=== PATIENT | male | born 1980 | race African-American/Black ===

== ENCOUNTER 2020-07-19 00:19 | Emergency (ER) | payer SELFPAY ==
[~2020-07-19] VITALS: Ht 185.4 cm; Wt 104.5 kg
[2020-07-19] MEDS ORDERED: fentaNYL PF VIAL 100 MCG/2 ML VIAL ONE (01:06)
--- NOTE | 2020-07-19 01:16 | EKG ---
[facility] [address] [place] [address] Test Date: 2020-07-19 Test Time: 00:34:01 Pat Name: BUSTER FERNANDEZ Department: Room: Gender: M [employer] Store General Manager: : 1980 Requested By: MAURICIO MATA Order Number: [id number] Reading MD: Measurements Intervals [place] Rate: 114 P: 33 GA: 170 QRS: -3 QRSD: 90 T: 24 QT: 322 QTc: 447 Interpretive Statements SINUS TACHYCARDIA LEFTWARD AXIS NO SPECIFIC ECG ABNORMALITIES RI6.02 Compared to ECG 07/19/2020 00:30:35 No significant changes
--- NOTE | 2020-07-19 01:17 | PHYS DOC ---
Past Medical History Past Medical History: No Pertinent History Past Surgical History: No Surgical History Smoking Status: Current Every Day Smoker Alcohol Use: Occasionally Drug Use: Marijuana General Adult EDM: Chief Complaint: ANXIETY/PANIC ATTACK HPI: HPI: Patient is a 39 year old male who presented to ER due to feeling anxiety and heart palpitation for the last 2 days. Patient admitted of smoking marijuana. Patient denies any chest pain, no abdominal pain, no nausea vomiting. Patient denies suicidal ideation. Patient denied using methamphetamine or cocaine. Patient denies history hypertension. He denies history of diabetes or history of coronary ARTERY disease. Review of Systems: Review of Systems: Constitutional: Denies fever or chills. [] Eyes: Denies change in visual acuity. [] HENT: Denies nasal congestion or sore throat. [] Respiratory: Denies cough or shortness of breath. [] Cardiovascular: Denies chest pain or edema. Positive for heart palpitation GI: Denies abdominal pain, nausea, vomiting, bloody stools or diarrhea. [] : Denies dysuria. [] Musculoskeletal: Denies back pain or joint pain. [] Integument: Denies rash. [] Neurologic: Denies headache, focal weakness or sensory changes. [] Endocrine: Denies polyuria or polydipsia. [] Lymphatic: Denies swollen glands. [] Psychiatric: Denies depression,positive for anxiety. [] Heart Score: C/O Chest Pain: Yes HEART Score for Chest Pain: HEART Score for Chest Pain Response (Comments) Value History Moderately Suspicious 1 ECG Nonspecific Repolarizatio 1 Age < 45 0 Risk Factors 1 or 2 Risk Factors 1 Troponin < Normal Limit 0 Total 3 Risk Factors: Risk Factors: DM, Current or recent (<one month) smoker, HTN, HLP, family history of CAD, obesity. Risk Scores: Score 0 - 3: 2.5% MACE over next 6 weeks - Discharge Home Score 4 - 6: 20.3% MACE over next 6 weeks - Admit for Clinical Observation Score 7 - 10: 72.7% MACE over next 6 weeks - Early Invasive Strategies Current Medications: Current Medications Medications (Trade) Dose Ordered Sig/Gail Start Time Stop Time Status Last Admin Dose Admin Fentanyl Citrate (Fentanyl 2ml Vial) 100 mcg STK-MED ONCE 07/19/20 01:06 07/19/20 01:06 DC Allergies: Allergies: Allergies Coded Allergies Type Severity Reaction Last Updated Verified No Known Drug Allergies 07/19/20 No Physical Exam: PE: Constitutional: Well developed, well nourished, no acute distress, non-toxic appearance. [] HENT: Normocephalic, atraumatic, bilateral external ears normal, oropharynx moist, no oral exudates, nose normal. [] Eyes: PERRLA, EOMI, conjunctiva normal, no discharge. [] Neck: Normal range of motion, no tenderness, supple, no stridor. [] Cardiovascular: SINUS TACHYCARDIA, regular rhythm, no murmur [] Lungs & Thorax: Bilateral breath sounds clear to auscultation [] Abdomen: Bowel sounds normal, soft, no tenderness, no masses, no pulsatile masses. [] Skin: Warm, dry, no erythema, no rash. [] Back: No tenderness, no CVA tenderness. [] Extremities: No tenderness, no cyanosis, no clubbing, ROM intact, no edema. [] Neurologic: Alert and oriented X 3, normal motor function, normal sensory function, no focal deficits noted. [] Psychologic: Affect normal, judgement normal, mood normal. Appeared to be anxious Current Patient Data: Labs: Laboratory Tests Test 07/19/20 00:46 07/19/20 01:30 07/19/20 05:31 Urine Collection Type Unknown Urine Color Yellow Urine Clarity Clear Urine pH 6.0 Urine Specific [place] <=1.005 Urine Protein Negative mg/dL Urine Glucose (UA) Negative mg/dL Urine Ketones (Stick) Negative mg/dL Urine Blood Negative Urine Nitrite Negative Urine Bilirubin Negative Urine Urobilinogen Dipstick 0.2 mg/dL Urine Leukocyte Esterase Negative Urine RBC 0 /HPF Urine WBC 0 /HPF Urine Squamous Epithelial Cells Occ /LPF Urine Bacteria 0 /HPF Urine Opiates Screen Neg Urine Methadone Screen Neg Urine Barbiturates Neg Urine Phencyclidine Screen Neg Urine Amphetamine/Methamphetamine Neg Urine Benzodiazepines Screen Neg Urine Cocaine Screen Neg Urine Cannabinoids Screen Pos Urine Ethyl Alcohol Neg White Blood Count 5.7 x10^3/uL Red Blood Count 4.90 x10^6/uL Hemoglobin 15.5 g/dL Hematocrit 44.9 % Mean Corpuscular Volume 92 fL Mean Corpuscular Hemoglobin 32 pg Mean Corpuscular Hemoglobin Concent 34 g/dL Red Cell Distribution Width 14.9 % Platelet Count 199 x10^3/uL Neutrophils (%) (Auto) 75 % Lymphocytes (%) (Auto) 14 % Monocytes (%) (Auto) 10 % Eosinophils (%) (Auto) 0 % Basophils (%) (Auto) 1 % Neutrophils # (Auto) 4.3 x10^3/uL Lymphocytes # (Auto) 0.8 x10^3/uL Monocytes # (Auto) 0.6 x10^3/uL Eosinophils # (Auto) 0.0 x10^3/uL Basophils # (Auto) 0.0 x10^3/uL Sodium Level 138 mmol/L Potassium Level 3.6 mmol/L Chloride Level 96 mmol/L Carbon Dioxide Level 26 mmol/L Anion Gap 16 Blood Urea Nitrogen 3 mg/dL Creatinine 0.8 mg/dL Estimated GFR (Cockcroft-Gault) 130.2 BUN/Creatinine Ratio 4 Glucose Level 140 mg/dL Calcium Level 9.4 mg/dL Magnesium Level 2.2 mg/dL Total Bilirubin 1.0 mg/dL Aspartate Amino Transf (AST/SGOT) 254 U/L Alanine Aminotransferase (ALT/SGPT) 277 U/L Alkaline Phosphatase 85 U/L Troponin I Quantitative < 0.017 ng/mL < 0.017 ng/mL XD-Vul-B-Type Natriuretic Peptide 26 pg/mL Total Protein 8.5 g/dL Albumin 5.1 g/dL Albumin/Globulin Ratio 1.5 Lipase 217 U/L Thyroid Stimulating Hormone (TSH) 1.675 uIU/mL Current Medications Medications (Trade) Dose Ordered Sig/Gail Route PRN Reason Start Time Stop Time Status Last Admin Dose Admin Fentanyl Citrate (Fentanyl 2ml Vial) 100 mcg STK-MED ONCE .ROUTE 07/19/20 01:06 07/19/20 01:06 DC Lorazepam (Ativan Inj) 1 mg 1X ONCE IVP 07/19/20 01:15 07/19/20 01:16 DC 07/19/20 01:37 Metoprolol Tartrate (Lopressor Vial) 5 mg 1X ONCE IVP 07/19/20 04:00 07/19/20 04:01 DC 07/19/20 04:16 EKG: EKG: EKG was done at 0034, HEART RATE OF 114 BPM, NO STEMI. SINUS TACHYCARDIA, LEFT AXIS DEVIATION Radiology/Procedures: Radiology/Procedures: [][facility] [address] [place] [address] IMAGING REPORT Signed PATIENT: BUSTER FERNANDEZ EACCOUNT: [id number] : 1980 LOCATION: ER AGE: 39 SEX: M EXAM STATUS: REG ER ORD. PHYSICIAN: MAURICIO MATA DO REASON: SOA PROCEDURE: PORTABLE CHEST 1V INDICATION: Reason: SOA / Spl. Instructions: / History: COMPARISON: None. FINDINGS: 2 frontal views of the chest obtained. Subtle haziness of the left lower lung. Cardiac silhouette unremarkable. IMPRESSION: * Subtle haziness at the left lower lung. Could be from overlap of structures but early infiltrate or atelectasis not excluded. Electronically signed by: Christian Bustamante MD (07/19/2020 1:42 AM) [id number] DICTATED and SIGNED BY: CHRISTIAN BUSTAMANTE MD DATE: 07/19/20 [id number] Course & Med Decision Making: Course & Med Decision Making Pertinent Labs and Imaging studies reviewed. (See chart for details) Patient felt much better at this time. He denied any chest pain or shortness of air. NO SI OR HI. His blood pressure improved. Will discharge home with Antihypertensive medication and he will need to follow up with PCP in 2 days for reevaluation. Pato Disclaimer: Pato Disclaimer: This electronic medical record was generated, in whole or in part, using a voice recognition dictation system. Departure Departure Impression: Primary Impression: Hypertension Additional Impression: Palpitation Disposition: 01 HOME / SELF CARE / HOMELESS Condition: IMPROVED Referrals: NO PCP (PCP) Please follow up with [facility] this week. [address], [address] [place] [address] Phone number: [phone] Patient Instructions: Anxiety and Panic Attacks, Hypertension, Palpitations Additional Instructions: Thank you for visiting our Emergency Department. We appreciate you trusting us with your care. If any additional problems come up don't hesitate to return to visit us. Please follow up with your primary care provider so they can plan additional care if needed and know about the problem that you had. If symptoms worsen come back to the Emergency Department. Any concerning symptoms that start such as chest pain, shortness of air, weakness or numbness on one side of the body, running high fevers or any other concerning symptoms return to the ER. Scripts Amlodipine Besylate (NORVASC) 5 Mg Tablet 1 TAB PO DAILY, #30 TAB Prov: MAURICIO MATA DO 07/19/20 MAURICIO MATA DO July 19, 2020 01:17
[2020-07-19 01:32] LABS: BILIRUBIN,URINE NEGATIVE (NEG); CLARITY,URINE CLEAR; COLOR,URINE YELLOW; NITRITE,URINE NEGATIVE (NEG); PROTEIN,URINE NEGATIVE (NEG-TRACE); UROBILINOGEN,URINE 0.2 mg/dL (0.2 mg/dL)
[2020-07-19 01:37] LABS: BACTERIA,URINE 0 /HPF (0-FEW); RBC,URINE 0 /HPF (0-2); WBC,URINE 0 /HPF (0-4)
[2020-07-19 01:38] LABS: AMPHETAMINE/METHAMPHETAMINE NEG (NEG); BARBITURATES NEG (NEG); BENZODIAZEPINES NEG (NEG); CANNABINOIDS POS (NEG); COCAINE NEG (NEG); METHADONE NEG (NEG); OPIATES NEG (NEG); PHENCYCLIDINE NEG (NEG)
[2020-07-19 01:43] LABS: BASO % 1 % (0-3); EOS % 0 % (0-3); HEMATOCRIT 44.9 % (39.0-53.0); HEMOGLOBIN 15.5 g/dL (13.0-17.5); LYMPH # 0.8 x10^3/uL (1.0-4.8); LYMPH % 14 % (24-48); MEAN CORPUSCULAR HEMOGLOBIN 32 pg (25-35); MEAN CORPUSCULAR HGB CONC 34 g/dL (31-37); MEAN CORPUSCULAR VOLUME 92 fL (79-100); MONO # 0.6 x10^3/uL (0.0-1.1); MONO % 10 % (0-9); NEUT # 4.3 x10^3/uL (1.8-7.7); NEUT % 75 % (31-73); PLATELET COUNT 199 x10^3/uL (140-400); RED CELL DISTRIBUTION WIDTH 14.9 % (11.5-14.5); WHITE BLOOD COUNT 5.7 x10^3/uL (4.0-11.0)
--- NOTE | 2020-07-19 01:44 | RAD ---
INDICATION: Reason: SOA / Spl. Instructions: / History: COMPARISON: None. FINDINGS: 2 frontal views of the chest obtained. Subtle haziness of the left lower lung. Cardiac silhouette unremarkable. IMPRESSION: * Subtle haziness at the left lower lung. Could be from overlap of structures but early infiltrate o r atelectasis not excluded. Electronically signed by: Frank Bustamante MD (07/19/2020 1:42 AM) [id number]
[2020-07-19 01:53] LABS: CALCIUM 9.4 mg/dL (8.5-10.1); CREATININE 0.8 mg/dL (0.7-1.3); GFR 130.2; POTASSIUM 3.6 mmol/L (3.5-5.1)
[2020-07-19 01:59] LABS: ALBUMIN 5.1 g/dL (3.4-5.0); ALBUMIN/GLOBULIN RATIO 1.5 (1.0-1.7); MAGNESIUM 2.2 mg/dL (1.8-2.4); TOTAL PROTEIN 8.5 g/dL (6.4-8.2)
[2020-07-19] MEDS ORDERED: METOPROLOL IV PUSH 5 MG/5 ML VIAL. IVP ONE (04:00)
[2020-07-19 05:31] VITALS: BP 168/102
[2020-07-19] MEDS ORDERED: AMLO5TAB4 PO (06:40)
== END 2020-07-19 06:55 | disposition home or self-care (01) ==
LOC: ER 00:19
DX: I10 Essential (primary) hypertension (principal); R00.2 Palpitations; F17.200 Nicotine dependence, unspecified, uncomplicated
CPT/HCPCS: 36415; 71045; 80053; 80307; 81001; 83690; 83735; 83880; 84443; 84484; 85025; 93005; 96374; 96375; 99285; J2060; J3490